=== PATIENT | female | born 1990 | race Caucasian/White ===

== ENCOUNTER → 2017-02-15 | Outpatient (CLI) | payer OTHER ==
[~2017-02-15] MED LIST: METHACHOLINE KIT (J7674) INH ONE
--- NOTE | 2017-02-15 08:39 | PFTRPT ---
Tech: Beverly CURRIE RRT Age: 27 Sex: Female Race: Height: 65.00 Inches Weight: 150.00 Lbs BSA: 1.75 Diagnosis: R06.02 METHACHOLINE CHALLENGE REPORT: ORDERING PROVIDER: KOURTNEY Pope DATE OF SERVICE: 02/15/17 INTERPRETATION: The study was of excellent technical quality. Under protocol, methacholine was administered. At a dose of 25 mg (188.875 CDUs) of methacholine, a 22% decline in the FEV1 was noted. A PC20 of 18.91 does not meet diagnostic criteria for a positive test. IMPRESSION: Negative methacholine challenge study based on Gold standard criteria. Please correlate clinically. MTDD
== END ==
LOC: M CARPUL 07:22
PROVIDERS: ATTEND Nurse Practitioner Adult Health
DX: R06.02 Shortness of breath (principal)
CPT/HCPCS: 94070; J7674